=== PATIENT | female | born 1945 | race Caucasian/White ===

== ENCOUNTER 2017-10-27 14:00 | Outpatient (CLI) | payer MEDICARE ==
[~2017-10-27] VITALS: Ht 144.8 cm; Wt 62.6 kg
[2017-10-27 13:54] VITALS: BP 0/0
[~2017-10-27 14:00] MED LIST: ATOR20TA66 PO; GABA-488 PO; OMEP20TA7 PO
== END 2017-10-27 14:58 ==
LOC: PREOP 14:00
PROVIDERS: ATTEND Specialist
DX: Z01.818 Encounter for other preprocedural examination (principal); H26.9 Unspecified cataract

== ENCOUNTER 2017-10-30 06:09 | Day surgery (SDC) | payer MEDICARE ==
[~2017-10-30] VITALS: Ht 144.8 cm; Wt 62.6 kg
[2017-10-30] MEDS ORDERED: MIDAZOLAM 2 MG/2 ML (VERSED) VIAL ONE (06:55)
[2017-10-30] MEDS ORDERED: POVIDONE (BETADINE) OPHTH SOLN 5% 30 ML OP ONE (07:00)
[2017-10-30] MEDS: TETRACAINE 0.5% OPHTH SOLN 4 ML BTL (SINGLE DOSE ONLY) OU PRN ×3 (07:01→07:51)
[2017-10-30 07:03] VITALS: BP 128/78
[2017-10-30] MEDS: CYCLOPENTOLATE 1% (CYCLOGYL) 2 ML DROPS OP SCH ×4 (07:15→07:51)
[2017-10-30] MEDS: PHENYLEPHRINE 10% OPHTH (NEO-SYN) 5 ML BTL OU SCH ×4 (07:16→07:51)
[2017-10-30] MEDS ORDERED: VANCOMYCIN/BSS (COMPOUNDED) 10 MG/ML SYR OP ONE (07:33)
[2017-10-30] MEDS ORDERED: TIMOLOL MALEATE 0.5% 5 ML (TIMOPTIC) BTL OU ONE (07:33)
[2017-10-30] MEDS ORDERED: LIDOCAINE PF 1% 2 ML AMP INJ ONE (07:33)
--- NOTE | 2017-10-30 07:55 | Progress Note-Pre Operative ---
Pre-Operative Progress Note H&P Reviewed The H&P was reviewed, patient examined and no changes noted. Time Seen by Provider: 07:54 Date H&P Reviewed: Oct 30, 2017 Time H&P Reviewed: 07:54 Pre-Operative Diagnosis: cataract r eye SOLE MOSHRE MD Oct 30, 2017 07:54
[2017-10-30] MEDS: VANCOMYCIN/BSS (COMPOUNDED) 10 MG/ML SYR OP ONE ×2 (08:20→08:30)
[2017-10-30 08:36] VITALS: BP 140/78
--- NOTE | 2017-10-30 08:39 | Ophthalmology Operative Report ---
Cataract removal/placement IOL PREOPERATIVE DIAGNOSIS: Cataract Right Eye POSTOPERATIVE DIAGNOSIS: Cataract Right Eye PROCEDURE: Cataract removal and placement of posterior chamber implant, right eye SURGEON: Ronnie Frank ANESTHESIA: Topical with sedation COMPLICATIONS: None ESTIMATED BLOOD LOSS: Minimal DESCRIPTION OF PROCEDURE: After proper informed consent was obtained, the patient, a [id number] female, was taken to the Operating Room and the right eye was anesthetized with tetracaine. They right eye was then prepped and draped in the usual manner. A wire lid speculum was placed. A paracentesis was made at the left hand position. Preservative free lidocaine was injected into the anterior chamber followed by viscoelastic. A clear corneal incision was made in the temporal position. A capsulorrhexis was preformed and the central nuclear and cortical material were removed. The posterior capsule was polished and Maged [id number] 24.5 IOL was placed into the capsular bag. The residual viscoelastic was aspirated and balanced saline solution was injected into the anterior chamber. 0.1 ml of Vancomycin (1mg/0.1ml ) was injected into the anterior chamber. The would was checked and found to be water tight. The patient tolerated the procedure well without complications. [RONNIE WILLINGHAM MD Oct 30, 2017 08:39
[2017-11-03] MEDS ORDERED: EPINEPHrine INJECTION 1 MG/ML AMP IR ONE (12:22)
== END 2017-10-30 08:45 | disposition home or self-care (01) ==
LOC: SDC 06:09
PROVIDERS: ATTEND Specialist
DX: H26.9 Unspecified cataract (principal); E78.00 Pure hypercholesterolemia, unspecified; K21.9 Gastro-esophageal reflux disease without esophagitis; Z79.899 Other long term (current) drug therapy

== ENCOUNTER → 2019-02-01 | Outpatient (CLI) | payer MEDICARE ==
--- NOTE | 2019-02-01 11:14 | Diagnostic Imaging Report ---
INDICATION: Right shoulder pain. TECHNIQUE: AP, oblique, and lateral views of the right shoulder were obtained. FINDINGS: No fracture or dislocation is seen. There is no acute bony abnormality. There is mild degenerative change of the glenohumeral joint and AC joint. IMPRESSION: Mild degenerative findings with no acute abnormality seen. Dictated by: Dictated on workstation # [id number]
== END ==
LOC: RAD FS 10:55
PROVIDERS: ATTEND Family Medicine
DX: M19.011 Primary osteoarthritis, right shoulder (principal)
CPT/HCPCS: 73030

== ENCOUNTER 2019-11-30 05:49 | Outpatient (CLI) | payer MEDICARE ==
[~2019-11-30] VITALS: Ht 146 cm; Wt 62.7 kg
== END 2019-11-30 16:37 | disposition home or self-care (01) ==
LOC: PREOP 05:49
PROVIDERS: ATTEND Specialist
DX: Z01.818 Encounter for other preprocedural examination (principal)

== ENCOUNTER 2020-01-27 06:53 | Outpatient (RCR) | payer MEDICARE ==
[~2020-01-27] VITALS: Ht 154.9 cm; Wt 62.7 kg
== END 2020-04-26 | disposition home or self-care (01) ==
LOC: PREOP 06:53
PROVIDERS: ATTEND Specialist
DX: Z01.818 Encounter for other preprocedural examination (principal)

== ENCOUNTER → 2021-04-11 | Outpatient (CLI) | payer MEDICARE ==
--- NOTE | 2021-04-11 10:46 | Diagnostic Imaging Report ---
Indication: Back pain 3 views of the lumbosacral spine shows normal height of the vertebral bodies. There is diffuse degenerative changes with only some disc space narrowing at all levels. There is mild spondylosis. There are several millimeters of spondylolisthesis at L4-L5. There are degenerated facets most pronounced at L4 and L5. There is no fracture. IMPRESSION: There is degenerative disc and facet disease present most pronounced at L4-L5. No acute abnormality is seen. Dictated by: Dictated on workstation # [id number]
== END ==
LOC: RAD FS 09:52
PROVIDERS: ATTEND Family Medicine
DX: M47.816 Spondylosis without myelopathy or radiculopathy, lumbar region (principal); M51.36 Other intervertebral disc degeneration, lumbar region
CPT/HCPCS: 72100

== ENCOUNTER → 2022-03-05 | Outpatient (CLI) | payer MEDICARE ==
[~2022-03-05] MED LIST changes: +OMEP20TA56 PO; -OMEP20TA7 PO
== END ==
LOC: CARD 08:00
PROVIDERS: ATTEND Family Medicine
DX: I35.1 Nonrheumatic aortic (valve) insufficiency (principal)
CPT/HCPCS: 93306